=== PATIENT | male | born 1960 | race Caucasian/White ===

== ENCOUNTER 2022-04-14 23:02 | Inpatient (IN) | payer OTHER, BC ==
[~2022-04-14 23:02] MED LIST: Iopamidol-370 76% 500 ML 1 ML ONE
[2022-04-14] MEDS ORDERED: Boostrix 0.5 ML (Tdap) VIAL ONE (23:09)
[2022-04-14] MEDS ORDERED: CEFAZOLIN 1 GM VIAL ONE (23:09)
[2022-04-14] MEDS ORDERED: Fentanyl 100 MCG/2 ML VIAL ONE (23:15)
[2022-04-14 23:30] LABS: #Basophils 0.1 thou/uL (0.0-0.2); #Eosinphils 0.2 thou/uL (0.0-0.7); #Lymphocytes 3.8 thou/uL (1.20-3.40); #Monocytes 0.7 thou/uL (0.11-0.59); #Neutrophils 5.3 thou/uL (1.40-6.50); %Basophils 0.6 % (0.0-1.0); %Eosinophils 2.4 % (0.0-10.0); %Lymphocytes 37.5 % (21.0-51.0); %Neutrophils 52.5 % (42.0-75.0); Hemoglobin 13.6 g/dL (14.0-18.0); Mean Corpuscular HGB CONC 33.4 g/dL (32.0-36.0); Mean Corpuscular Hemoglobin 32.8 pg (27.0-31.0); Mean Corpuscular Volume 98.1 fL (78.0-98.0); Mean Platelet Volume 8.3 fL (7.4-10.4); Platelet Count 285 thou/uL (130-400); RBC Distribution Width 11.9 % (11.5-14.5); Red Blood Cell (RBC) Count 4.15 mill/uL (4.70-6.10)
[2022-04-14 23:42] LABS: Prothrombin Time 13.7 sec (12.0-14.7)
[2022-04-14 23:43] LABS: PTT 25.6 sec (22.9-36.1)
[2022-04-14 23:46] LABS: ALT (SGPT) 130 U/L (8-55); AST (SGOT) 134 U/L (5-34); Albumin 3.7 g/dL (3.4-4.8); Alkaline Phosphatase 50 U/L (40-110); Anion Gap 13 mmol/L (10-20); BUN (Urea Nitrogen) 15 mg/dL (8.4-25.7); Bilirubin, Total 0.4 mg/dL (0.2-1.2); Calc. Creatinine Clearance 0 mL/min (70-130); Calcium 8.6 mg/dL (7.8-10.44); Carbon Dioxide 21 mmol/L (23-31); Chloride 112 mmol/L (98-107); Globulin 2.7 g/dL (2.4-3.5); Glucose 98 mg/dL (80-115); Lipase 33 U/L (8-78); Protein, Total 6.4 g/dL (5.8-8.1); Sodium 142 mmol/L (136-145)
[2022-04-15] MEDS ORDERED: Morphine 4 MG/ML VIAL ONE (00:03)
[2022-04-15] MEDS ORDERED: Lidocaine 1% PF 5 ML VIAL ONE ×3 (00:09→12:20)
[2022-04-15] MEDS ORDERED: Bupivacaine 0.25% 10 ML VIAL ONE (00:09)
[2022-04-15] MEDS ORDERED: Xylocaine 1% w/ Epi 1:100K 10 ML VIAL ONE ×4 (00:09→18:53)
[2022-04-15] MEDS ORDERED: Ketamine 50 MG/ML (10ML VIAL) ONE ×2 (00:18→15:14)
[2022-04-15] MEDS ORDERED: Lidocaine 1% w/Epinephrine 1:100K 20 ML VIAL ONE (01:08)
[2022-04-15] MEDS ORDERED: Fentanyl 100 MCG/2 ML VIAL ONE ×2 (01:43→03:06)
[2022-04-15] MEDS ORDERED: Dextrose 5% in Water 1,000 ML IV PRN (02:33)
[2022-04-15] MEDS ORDERED: diphenhydrAMINE 50 MG/ML VIAL IVP PRN (02:33)
[2022-04-15] MEDS ORDERED: diphenhydrAMINE 25 MG CAP PO PRN (02:33)
[2022-04-15] MEDS ORDERED: Dextrose 50% Abboject 50 ML SYRINGE SLOW IVP PRN (02:33)
[2022-04-15] MEDS ORDERED: diphenhydrAMINE 50 MG/ML VIAL IM PRN (02:33)
[2022-04-15] MEDS ORDERED: Ondansetron PF 4 MG/2 ML Vial IVP PRN (02:33)
[2022-04-15] MEDS ORDERED: Naloxone HCl 0.4 mg/ml Vial IV PRN (02:33)
[2022-04-15] MEDS ORDERED: Promethazine HCl 25 MG/ML VIAL IM PRN (02:33)
[2022-04-15] MEDS ORDERED: Sodium Chloride 0.9% 1,000 ML IV SCH (02:45)
[2022-04-15] MEDS ORDERED: Communication Order-Pharmacy FS SCH (02:45)
[2022-04-15 02:56] LABS: Bilirubin Negative (Negative); Blood, Urine 3+ (Negative); Clarity Turbid (Clear); Glucose, Urine (Dipstick) Normal (Negative); Ketone, Urine Negative (Negative); Leukocyte Negative Leu/uL (Negative); Nitrite Negative (Negative); Protein, Urine (Dipstick) 30 mg/dL (Neg-Trace); Squamous Epithelial 0-3 HPF (0-3); Urobilinogen Normal mg/dL (Less than 2); pH, Urine 5.5 (5.0-9.0)
[2022-04-15 02:59] LABS: Specific Gravity, Urine 1.045 (1.002-1.036)
[2022-04-15 03:05] LABS: Bacteria/HPF None Seen HPF (None Seen); WBC/HPF 0-3 HPF (0-3)
[2022-04-15 03:28] LABS: #Lymphocytes 0.7 thou/uL (1.20-3.40); #Monocytes 0.9 thou/uL (0.11-0.59); #Neutrophils 10.7 thou/uL (1.40-6.50); %Eosinophils 0.3 % (0.0-10.0); %Lymphocytes 5.6 % (21.0-51.0); %Monocytes 7.4 % (0.0-10.0); %Neutrophils 86.7 % (42.0-75.0); Hemoglobin 12.8 g/dL (14.0-18.0); Mean Corpuscular Hemoglobin 32.3 pg (27.0-31.0); Mean Platelet Volume 8.2 fL (7.4-10.4); Platelet Count 168 thou/uL (130-400); RBC Distribution Width 12.9 % (11.5-14.5); Red Blood Cell (RBC) Count 3.97 mill/uL (4.70-6.10); White Blood Cell (WBC) Count 12.3 thou/uL (4.8-10.8)
[2022-04-15] MEDS ORDERED: Fentanyl 100 MCG/2 ML VIAL SLOW IVP SCH ×2 (03:30→08:00)
[2022-04-15] MEDS: HYDROmorphone 10 mg/100 ml CADD IVPB PRN ×2 (03:54→16:54)
[2022-04-15 04:04] LABS: ALT (SGPT) 118 U/L (8-55); AST (SGOT) 125 U/L (5-34); Albumin 3.8 g/dL (3.4-4.8); Alkaline Phosphatase 48 U/L (40-110); Anion Gap 14 mmol/L (10-20); BUN (Urea Nitrogen) 15 mg/dL (8.4-25.7); Bilirubin, Total 1.3 mg/dL (0.2-1.2); CK (CPK) 860 U/L (30-200); Calc. Creatinine Clearance 0 mL/min (70-130); Calcium 8.3 mg/dL (7.8-10.44); Carbon Dioxide 21 mmol/L (23-31); Chloride 112 mmol/L (98-107); Globulin 2.5 g/dL (2.4-3.5); Glucose 148 mg/dL (80-115); Magnesium 1.5 mg/dL (1.6-2.6); Phosphorus 1.7 mg/dL (2.3-4.7); Potassium 3.8 mmol/L (3.5-5.1); Protein, Total 6.3 g/dL (5.8-8.1); Sodium 143 mmol/L (136-145)
[2022-04-15] MEDS: Ketorolac Tromethamine 30 MG/ML VIAL IVP SCH ×4 (06:16→23:52)
[2022-04-15] MEDS ORDERED: Magnesium 2 GM/50 ML(in water) 4 GM in Premix Bag 1 BAG IVPB SCH (07:30)
[2022-04-15] MEDS ORDERED: Potassium Phosphate 30 MMOL, Magnesium Sulfate 4 GM in Sodium Chloride 0.9% 250 ML 250 ML IVPB SCH (07:45)
[2022-04-15] MEDS: Sodium Chloride 0.9% 1,000 ML IV SCH ×3 (08:10→19:48)
[2022-04-15] MEDS: Acetaminophen 500 MG TAB PO SCH ×3 (08:11→20:28)
[2022-04-15] MEDS: Pantoprazole 40 MG VIAL IVP SCH ×2 (08:20→20:28)
[2022-04-15] MEDS ORDERED: Iopamidol-370 76% 500 ML 1 ML ONE (10:33)
[2022-04-15] MEDS ORDERED: Fentanyl 250 MCG/5 ML VIAL ONE (11:43)
[2022-04-15] MEDS ORDERED: SUGAMMADEX SODIUM 200 MG/2 ML VIAL ONE (11:43)
[2022-04-15] MEDS ORDERED: fentaNYL Citrate/PF 100 MCG/2 ML SYRINGE ONE ×2 (12:19→14:07)
[2022-04-15] MEDS ORDERED: PHENYLEPHRINE-NS 100 MCG/ML 10 ML SYRINGE ONE (12:20)
[2022-04-15] MEDS ORDERED: ePHEDrine 50 MG/ML VIAL ONE (12:20)
[2022-04-15] MEDS ORDERED: Vecuronium 10 MG VIAL ONE (12:20)
[2022-04-15] MEDS ORDERED: Ondansetron PF 4 MG/2 ML Vial ONE (12:20)
[2022-04-15] MEDS ORDERED: Dexamethasone 20 MG/5 ML VIAL ONE (12:20)
[2022-04-15] MEDS ORDERED: Rocuronium Bromide 10 MG/ML (10ML VIAL) ONE (12:20)
[2022-04-15] MEDS ORDERED: PROPOFOL 200 MG/20 ML VIAL ONE (12:20)
[2022-04-15] MEDS ORDERED: Levofloxacin 500 mg/D5W 100 ml Premix Bag ONE (12:39)
[2022-04-15] MEDS ORDERED: Clindamycin/D5W 900 mg/50 ml Premix Bag ONE (12:39)
[2022-04-15] MEDS ORDERED: HYDROmorphone 0.5 MG/0.5 ML SYRINGE ONE (14:06)
[2022-04-15] MEDS ORDERED: Dexmedetomidine 200 MCG/2 ML VIAL ONE (15:14)
[2022-04-15] MEDS: Ferrous Sulfate 325 MG TAB PO SCH (17:02)
[2022-04-15] MEDS ORDERED: Lidocaine 1%/Epinephrine 1:100K 10 ML VIAL FS SCH (19:00)
[2022-04-15] MEDS ORDERED: Clindamycin/D5W 900 MG in Premix Bag 1 BAG IVPB SCH (19:04)
[2022-04-15] MEDS: Senokot S 8.6-50 MG TAB PO SCH (20:29)
[2022-04-15] MEDS: Ascorbic Acid 500 mg Chewable Tablet PO SCH (20:29)
[2022-04-16] MEDS: Acetaminophen 500 MG TAB PO SCH ×4 (01:02→21:35)
[2022-04-16] MEDS: Sodium Chloride 0.9% 1,000 ML IV SCH (03:54)
[2022-04-16 04:08] LABS: #Lymphocytes 0.5 thou/uL (1.20-3.40); #Monocytes 0.7 thou/uL (0.11-0.59); #Neutrophils 9.7 thou/uL (1.40-6.50); %Eosinophils 0.1 % (0.0-10.0); %Lymphocytes 4.5 % (21.0-51.0); %Monocytes 6.3 % (0.0-10.0); %Neutrophils 89.1 % (42.0-75.0); Hemoglobin 11.1 g/dL (14.0-18.0); Mean Corpuscular Hemoglobin 33.6 pg (27.0-31.0); Mean Corpuscular Volume 95.9 fL (78.0-98.0); Mean Platelet Volume 8.8 fL (7.4-10.4); Platelet Count 144 thou/uL (130-400); RBC Distribution Width 13.2 % (11.5-14.5); Red Blood Cell (RBC) Count 3.29 mill/uL (4.70-6.10); White Blood Cell (WBC) Count 10.9 thou/uL (4.8-10.8)
[2022-04-16 04:19] LABS: INR-International Normal Ratio 1.1; Prothrombin Time 14.7 sec (12.0-14.7)
[2022-04-16 04:20] LABS: PTT 32.6 sec (22.9-36.1)
[2022-04-16 04:40] LABS: Anion Gap 11 mmol/L (10-20); BUN (Urea Nitrogen) 8 mg/dL (8.4-25.7); CK (CPK) 2553 U/L (30-200); Calc. Creatinine Clearance 139 mL/min (70-130); Calcium 7.8 mg/dL (7.8-10.44); Carbon Dioxide 23 mmol/L (23-31); Chloride 109 mmol/L (98-107); Glucose 181 mg/dL (80-115); Magnesium 2.1 mg/dL (1.6-2.6); Phosphorus 2.1 mg/dL (2.3-4.7); Potassium 3.8 mmol/L (3.5-5.1); Sodium 139 mmol/L (136-145)
[2022-04-16] MEDS: Ketorolac Tromethamine 30 MG/ML VIAL IVP SCH ×3 (05:29→17:26)
[2022-04-16] MEDS: HYDROmorphone 10 mg/100 ml CADD IVPB PRN ×2 (07:34→21:31)
[2022-04-16] MEDS: Pantoprazole 40 MG VIAL IVP SCH ×2 (07:46→21:36)
[2022-04-16] MEDS: Ferrous Sulfate 325 MG TAB PO SCH ×2 (07:47→17:27)
[2022-04-16] MEDS: Polyethylene Glycol 3350 17 GM Packet PO SCH (07:47)
[2022-04-16] MEDS: Ascorbic Acid 500 mg Chewable Tablet PO SCH ×2 (07:47→21:35)
[2022-04-16] MEDS: Senokot S 8.6-50 MG TAB PO SCH ×2 (07:47→21:35)
[2022-04-16] MEDS ORDERED: Cyclobenzaprine 10 MG TAB PO PRN (09:57)
[2022-04-16] MEDS: traMADol HCl 50 MG TAB PO SCH ×2 (12:43→17:26)
[2022-04-16] MEDS: Gabapentin 100 MG CAP PO SCH ×2 (15:22→21:35)
[2022-04-16] MEDS: Enoxaparin Sodium 30 MG/0.3 ML SYRINGE SC SCH (21:34)
[2022-04-17] MEDS: Ketorolac Tromethamine 30 MG/ML VIAL IVP SCH (00:03)
[2022-04-17] MEDS: traMADol HCl 50 MG TAB PO SCH ×5 (00:06→23:27)
[2022-04-17] MEDS: Acetaminophen 500 MG TAB PO SCH ×4 (02:20→21:25)
[2022-04-17 06:16] LABS: #Eosinphils 0.1 thou/uL (0.0-0.7); #Lymphocytes 1.6 thou/uL (1.20-3.40); #Monocytes 0.9 thou/uL (0.11-0.59); #Neutrophils 8.6 thou/uL (1.40-6.50); %Basophils 0.2 % (0.0-1.0); %Eosinophils 0.5 % (0.0-10.0); %Lymphocytes 14.6 % (21.0-51.0); %Neutrophils 76.8 % (42.0-75.0); Hemoglobin 10.5 g/dL (14.0-18.0); Mean Corpuscular HGB CONC 33.8 g/dL (32.0-36.0); Mean Corpuscular Hemoglobin 32.9 pg (27.0-31.0); Mean Corpuscular Volume 97.6 fL (78.0-98.0); Mean Platelet Volume 8.6 fL (7.4-10.4); Platelet Count 141 thou/uL (130-400); RBC Distribution Width 13.1 % (11.5-14.5); Red Blood Cell (RBC) Count 3.19 mill/uL (4.70-6.10); White Blood Cell (WBC) Count 11.2 thou/uL (4.8-10.8)
[2022-04-17 06:44] LABS: Anion Gap 10 mmol/L (10-20); BUN (Urea Nitrogen) 11 mg/dL (8.4-25.7); CK (CPK) 2987 U/L (30-200); Calc. Creatinine Clearance 136 mL/min (70-130); Calcium 8.3 mg/dL (7.8-10.44); Carbon Dioxide 28 mmol/L (23-31); Chloride 106 mmol/L (98-107); Glucose 114 mg/dL (80-115); Magnesium 2.3 mg/dL (1.6-2.6); Phosphorus 3.1 mg/dL (2.3-4.7); Potassium 3.9 mmol/L (3.5-5.1); Sodium 140 mmol/L (136-145)
[2022-04-17] MEDS: HYDROmorphone 10 mg/100 ml CADD IVPB PRN (07:00)
[2022-04-17] MEDS ORDERED: Sodium Phosphate 15 MMOL in Sodium Chloride 0.9% 250 ML 250 ML IVPB SCH (08:00)
[2022-04-17] MEDS ORDERED: Enoxaparin Sodium 40 MG/0.4 ML SYRINGE SC SCH (09:00)
[2022-04-17] MEDS: Polyethylene Glycol 3350 17 GM Packet PO SCH (09:48)
[2022-04-17] MEDS: Enoxaparin Sodium 30 MG/0.3 ML SYRINGE SC SCH ×2 (09:49→21:25)
[2022-04-17] MEDS: Gabapentin 100 MG CAP PO SCH ×3 (09:49→21:26)
[2022-04-17] MEDS: Ascorbic Acid 500 mg Chewable Tablet PO SCH ×2 (09:49→21:25)
[2022-04-17] MEDS: Senokot S 8.6-50 MG TAB PO SCH ×2 (09:49→21:26)
[2022-04-17] MEDS: Pantoprazole 40 MG VIAL IVP SCH (09:49)
[2022-04-17] MEDS: Ferrous Sulfate 325 MG TAB PO SCH ×3 (09:50→21:26)
[2022-04-17] MEDS: Sodium Chloride 0.9% 1,000 ML IV SCH ×2 (09:56→16:58)
[2022-04-17] MEDS: hydrALAZINE 20 MG/ML VIAL SLOW IVP PRN (16:59)
[2022-04-18] MEDS: hydrALAZINE 20 MG/ML VIAL SLOW IVP PRN ×2 (00:01→05:04)
[2022-04-18 01:14] LABS: SARS-CoV-2 NAA Rapid Test Not Detected (NotDetected)
[2022-04-18] MEDS: Sodium Chloride 0.9% 1,000 ML IV SCH (01:20)
[2022-04-18] MEDS: Acetaminophen 500 MG TAB PO SCH ×4 (01:31→23:22)
[2022-04-18 05:24] LABS: #Eosinphils 0.2 thou/uL (0.0-0.7); #Lymphocytes 1.3 thou/uL (1.20-3.40); #Monocytes 0.5 thou/uL (0.11-0.59); #Neutrophils 5.9 thou/uL (1.40-6.50); %Basophils 0.4 % (0.0-1.0); %Eosinophils 2.7 % (0.0-10.0); %Lymphocytes 16.2 % (21.0-51.0); %Monocytes 6.3 % (0.0-10.0); %Neutrophils 74.4 % (42.0-75.0); Hemoglobin 10.3 g/dL (14.0-18.0); Mean Corpuscular HGB CONC 33.7 g/dL (32.0-36.0); Mean Corpuscular Hemoglobin 32.8 pg (27.0-31.0); Mean Corpuscular Volume 97.3 fL (78.0-98.0); Mean Platelet Volume 8.4 fL (7.4-10.4); Platelet Count 145 thou/uL (130-400); RBC Distribution Width 12.9 % (11.5-14.5); Red Blood Cell (RBC) Count 3.14 mill/uL (4.70-6.10)
[2022-04-18] MEDS: traMADol HCl 50 MG TAB PO SCH ×3 (05:32→17:34)
[2022-04-18 05:46] LABS: Anion Gap 7 mmol/L (10-20); BUN (Urea Nitrogen) 9 mg/dL (8.4-25.7); CK (CPK) 2055 U/L (30-200); Calc. Creatinine Clearance 179 mL/min (70-130); Calcium 8.4 mg/dL (7.8-10.44); Carbon Dioxide 29 mmol/L (23-31); Chloride 108 mmol/L (98-107); Glucose 101 mg/dL (80-115); Magnesium 1.8 mg/dL (1.6-2.6); Phosphorus 3.2 mg/dL (2.3-4.7); Potassium 3.7 mmol/L (3.5-5.1); Sodium 140 mmol/L (136-145)
[2022-04-18] MEDS: Ibuprofen 200 MG TAB PO PRN (05:58)
[2022-04-18] MEDS: HYDROmorphone 10 mg/100 ml CADD IVPB PRN (06:10)
[2022-04-18] MEDS ORDERED: Cyclobenzaprine 10 MG TAB PO PRN (07:41)
[2022-04-18] MEDS: Senokot S 8.6-50 MG TAB PO SCH ×2 (09:56→23:24)
[2022-04-18] MEDS: Enoxaparin Sodium 30 MG/0.3 ML SYRINGE SC SCH ×2 (09:56→23:23)
[2022-04-18] MEDS: Ferrous Sulfate 325 MG TAB PO SCH ×2 (09:56→23:23)
[2022-04-18] MEDS: Ascorbic Acid 500 mg Chewable Tablet PO SCH ×2 (09:56→23:23)
[2022-04-18] MEDS: Polyethylene Glycol 3350 17 GM Packet PO SCH (09:56)
[2022-04-18] MEDS: Gabapentin 100 MG CAP PO SCH ×3 (09:57→23:23)
[2022-04-18] MEDS ORDERED: Magnesium 2 GM/50 ML(in water) 2 GM in Premix Bag 1 BAG IVPB SCH (11:30)
[2022-04-18] MEDS ORDERED: PHOS-NAK 1 PKT PACK PO SCH (11:30)
[2022-04-18] MEDS ORDERED: Bupivacaine PF 0.5% 30 ML VIAL ONE ×2 (17:38→23:08)
[2022-04-18] MEDS ORDERED: Bacitracin Zinc Ointment 30 gm TUBE ONE (17:38)
[2022-04-18] MEDS ORDERED: Neomycin-Polymyxin 1 ML AMP ONE (17:38)
[2022-04-18] MEDS ORDERED: fentaNYL Citrate/PF 100 MCG/2 ML SYRINGE ONE ×2 (17:53→18:40)
[2022-04-18] MEDS ORDERED: Vancomycin 1 GM/200 ML BAG ONE (18:00)
[2022-04-18] MEDS ORDERED: Ondansetron PF 4 MG/2 ML Vial ONE (18:06)
[2022-04-18] MEDS ORDERED: PROPOFOL 200 MG/20 ML VIAL ONE (18:06)
[2022-04-18] MEDS ORDERED: HYDROmorphone 2 MG/ML VIAL SLOW IVP PRN (23:46)
[2022-04-18] MEDS ORDERED: Promethazine HCl 25 MG/ML VIAL IM PRN (23:46)
[2022-04-18] MEDS ORDERED: Ondansetron HCl/PF 4 MG/2 ML Vial IVP PRN (23:46)
[2022-04-18] MEDS ORDERED: Promethazine HCl 25 MG/ML VIAL IVPB PRN (23:46)
[2022-04-18] MEDS ORDERED: Fentanyl 100 MCG/2 ML VIAL ONE (23:52)
[2022-04-19] MEDS ORDERED: HYDROmorphone 0.5 MG/0.5 ML SYRINGE ONE ×3 (00:15→00:39)
[2022-04-19] MEDS ORDERED: Fentanyl 100 MCG/2 ML VIAL ONE (00:59)
[2022-04-19] MEDS: Morphine 4 MG/ML VIAL SLOW IVP PRN ×4 (02:30→19:52)
[2022-04-19] MEDS: traMADol HCl 50 MG TAB PO SCH ×4 (02:45→16:27)
[2022-04-19] MEDS: Acetaminophen 500 MG TAB PO SCH ×4 (02:46→19:48)
[2022-04-19] MEDS: Ibuprofen 200 MG TAB PO PRN ×2 (02:47→06:12)
[2022-04-19] MEDS: tiZANidine HCl 4 MG TAB PO PRN ×2 (03:47→17:39)
[2022-04-19] MEDS: traMADol HCl 50 MG TAB PO PRN ×2 (03:47→17:40)
[2022-04-19 05:28] LABS: #Eosinphils 0.2 thou/uL (0.0-0.7); #Lymphocytes 1.1 thou/uL (1.20-3.40); #Monocytes 0.8 thou/uL (0.11-0.59); #Neutrophils 6.1 thou/uL (1.40-6.50); %Basophils 0.3 % (0.0-1.0); %Eosinophils 2.7 % (0.0-10.0); %Lymphocytes 13.2 % (21.0-51.0); %Monocytes 9.3 % (0.0-10.0); %Neutrophils 74.6 % (42.0-75.0); Hemoglobin 9.4 g/dL (14.0-18.0); Mean Corpuscular HGB CONC 34.6 g/dL (32.0-36.0); Mean Corpuscular Hemoglobin 32.8 pg (27.0-31.0); Mean Corpuscular Volume 94.9 fL (78.0-98.0); Mean Platelet Volume 7.5 fL (7.4-10.4); Platelet Count 168 thou/uL (130-400); RBC Distribution Width 12.7 % (11.5-14.5); Red Blood Cell (RBC) Count 2.87 mill/uL (4.70-6.10); White Blood Cell (WBC) Count 8.2 thou/uL (4.8-10.8)
[2022-04-19 06:09] LABS: Anion Gap 10 mmol/L (10-20); BUN (Urea Nitrogen) 15 mg/dL (8.4-25.7); Calc. Creatinine Clearance 110 mL/min (70-130); Carbon Dioxide 27 mmol/L (23-31); Chloride 105 mmol/L (98-107); Potassium 3.9 mmol/L (3.5-5.1); Sodium 138 mmol/L (136-145)
[2022-04-19 06:10] LABS: Calcium 8.1 mg/dL (7.8-10.44); Glucose 108 mg/dL (80-115); Phosphorus 4.5 mg/dL (2.3-4.7)
[2022-04-19] MEDS: Ascorbic Acid 500 mg Chewable Tablet PO SCH ×2 (07:54→19:46)
[2022-04-19] MEDS: Ferrous Sulfate 325 MG TAB PO SCH ×2 (07:54→19:45)
[2022-04-19] MEDS: Polyethylene Glycol 3350 17 GM Packet PO SCH (07:54)
[2022-04-19] MEDS: Gabapentin 100 MG CAP PO SCH ×4 (07:55→19:46)
[2022-04-19] MEDS: Enoxaparin Sodium 30 MG/0.3 ML SYRINGE SC SCH ×2 (07:55→22:13)
[2022-04-19] MEDS: Senokot S 8.6-50 MG TAB PO SCH ×2 (07:56→19:46)
[2022-04-19] MEDS: Ibuprofen 200 MG TAB PO SCH ×3 (15:16→19:47)
[2022-04-19] MEDS ORDERED: Promethazine HCl 25 MG/ML VIAL IM PRN (15:45)
[2022-04-19] MEDS ORDERED: Meperidine HCl/PF 25 MG/ML VIAL SLOW IVP PRN (15:45)
[2022-04-19] MEDS: Vancomycin 1 GM in Premix Bag 1 BAG IVPB SCH (16:29)
[2022-04-19] MEDS: hydrALAZINE 20 MG/ML VIAL SLOW IVP PRN (16:43)
[2022-04-20] MEDS: traMADol HCl 50 MG TAB PO SCH ×5 (00:01→23:29)
[2022-04-20] MEDS: traMADol HCl 50 MG TAB PO PRN ×3 (01:06→15:54)
[2022-04-20] MEDS: tiZANidine HCl 4 MG TAB PO PRN ×4 (01:07→23:34)
[2022-04-20] MEDS: Acetaminophen 500 MG TAB PO SCH ×4 (02:03→20:33)
[2022-04-20] MEDS: Ibuprofen 200 MG TAB PO SCH ×4 (02:04→20:34)
[2022-04-20] MEDS: Vancomycin 1 GM in Premix Bag 1 BAG IVPB SCH ×2 (05:13→15:55)
[2022-04-20] MEDS: Polyethylene Glycol 3350 17 GM Packet PO SCH (08:31)
[2022-04-20] MEDS: Ascorbic Acid 500 mg Chewable Tablet PO SCH ×2 (08:31→20:35)
[2022-04-20] MEDS: Ferrous Sulfate 325 MG TAB PO SCH ×2 (08:32→20:32)
[2022-04-20] MEDS: Senokot S 8.6-50 MG TAB PO SCH ×2 (08:32→20:35)
[2022-04-20] MEDS: Gabapentin 300 MG CAP PO SCH ×3 (08:33→20:34)
[2022-04-20] MEDS: Enoxaparin Sodium 30 MG/0.3 ML SYRINGE SC SCH ×2 (08:34→20:32)
[2022-04-20] MEDS: Morphine 4 MG/ML VIAL SLOW IVP PRN (14:28)
[2022-04-21] MEDS: Acetaminophen 500 MG TAB PO SCH ×4 (03:05→20:08)
[2022-04-21] MEDS: traMADol HCl 50 MG TAB PO PRN ×2 (03:06→22:44)
[2022-04-21 04:37] LABS: Vancomycin, Trough 8.6 ug/mL
[2022-04-21] MEDS: Ibuprofen 200 MG TAB PO SCH ×3 (05:23→22:44)
[2022-04-21] MEDS: Vancomycin 1 GM in Premix Bag 1 BAG IVPB SCH ×2 (05:23→16:30)
[2022-04-21] MEDS: traMADol HCl 50 MG TAB PO SCH ×4 (05:26→23:55)
[2022-04-21] MEDS: Gabapentin 300 MG CAP PO SCH ×3 (08:33→20:07)
[2022-04-21] MEDS: Ferrous Sulfate 325 MG TAB PO SCH ×2 (08:33→20:06)
[2022-04-21] MEDS: Enoxaparin Sodium 30 MG/0.3 ML SYRINGE SC SCH ×2 (08:33→20:07)
[2022-04-21] MEDS: Ascorbic Acid 500 mg Chewable Tablet PO SCH ×2 (08:33→20:06)
[2022-04-21] MEDS: Senokot S 8.6-50 MG TAB PO SCH ×2 (08:33→20:06)
[2022-04-21] MEDS: tiZANidine HCl 4 MG TAB PO PRN ×2 (08:36→17:45)
[2022-04-21] MEDS: Polyethylene Glycol 3350 17 GM Packet PO SCH (09:40)
[2022-04-21] MEDS: Morphine 4 MG/ML VIAL SLOW IVP PRN (23:01)
[2022-04-22] MEDS: Acetaminophen 500 MG TAB PO SCH ×4 (02:58→20:31)
[2022-04-22] MEDS: Ibuprofen 200 MG TAB PO SCH ×3 (05:16→21:52)
[2022-04-22] MEDS: traMADol HCl 50 MG TAB PO SCH ×4 (05:17→23:48)
[2022-04-22] MEDS: Ascorbic Acid 500 mg Chewable Tablet PO SCH ×2 (08:26→20:30)
[2022-04-22] MEDS: Ferrous Sulfate 325 MG TAB PO SCH ×2 (08:26→20:30)
[2022-04-22] MEDS: Gabapentin 300 MG CAP PO SCH ×3 (08:26→20:31)
[2022-04-22] MEDS: Enoxaparin Sodium 30 MG/0.3 ML SYRINGE SC SCH ×2 (08:26→20:32)
[2022-04-22] MEDS: Senokot S 8.6-50 MG TAB PO SCH ×2 (08:26→20:31)
[2022-04-22] MEDS: Polyethylene Glycol 3350 17 GM Packet PO SCH (09:19)
[2022-04-22] MEDS: tiZANidine HCl 4 MG TAB PO PRN ×2 (11:57→23:49)
[2022-04-22] MEDS: traMADol HCl 50 MG TAB PO PRN ×2 (11:58→20:31)
[2022-04-23] MEDS: Acetaminophen 500 MG TAB PO SCH ×4 (02:06→20:18)
[2022-04-23] MEDS: Ibuprofen 200 MG TAB PO SCH ×3 (05:36→21:58)
[2022-04-23] MEDS: traMADol HCl 50 MG TAB PO SCH ×4 (05:36→23:04)
[2022-04-23] MEDS: Ascorbic Acid 500 mg Chewable Tablet PO SCH ×2 (08:30→20:19)
[2022-04-23] MEDS: Gabapentin 300 MG CAP PO SCH ×3 (08:30→20:19)
[2022-04-23] MEDS: Ferrous Sulfate 325 MG TAB PO SCH ×2 (08:30→20:19)
[2022-04-23] MEDS: Senokot S 8.6-50 MG TAB PO SCH ×2 (08:31→20:20)
[2022-04-23] MEDS: Enoxaparin Sodium 30 MG/0.3 ML SYRINGE SC SCH ×2 (08:37→20:19)
[2022-04-23] MEDS: Polyethylene Glycol 3350 17 GM Packet PO SCH (08:38)
[2022-04-23] MEDS: tiZANidine HCl 4 MG TAB PO PRN ×2 (10:06→23:04)
[2022-04-23] MEDS: traMADol HCl 50 MG TAB PO PRN ×3 (10:06→21:59)
[2022-04-23] MEDS: Morphine 4 MG/ML VIAL SLOW IVP PRN (15:57)
[2022-04-24] MEDS: Acetaminophen 500 MG TAB PO SCH ×4 (01:31→18:38)
[2022-04-24] MEDS: Ibuprofen 200 MG TAB PO SCH ×3 (05:39→21:43)
[2022-04-24] MEDS: traMADol HCl 50 MG TAB PO SCH ×3 (05:39→18:37)
[2022-04-24] MEDS: Ferrous Sulfate 325 MG TAB PO SCH ×2 (09:08→21:43)
[2022-04-24] MEDS: Gabapentin 300 MG CAP PO SCH ×3 (09:08→21:42)
[2022-04-24] MEDS: Enoxaparin Sodium 30 MG/0.3 ML SYRINGE SC SCH ×2 (09:08→21:43)
[2022-04-24] MEDS: Ascorbic Acid 500 mg Chewable Tablet PO SCH ×2 (09:08→21:43)
[2022-04-24] MEDS: tiZANidine HCl 4 MG TAB PO PRN ×2 (09:08→21:43)
[2022-04-24] MEDS: Senokot S 8.6-50 MG TAB PO SCH ×2 (09:09→21:44)
[2022-04-24] MEDS: Polyethylene Glycol 3350 17 GM Packet PO SCH (09:09)
[2022-04-24] MEDS ORDERED: Ketorolac Tromethamine 30 MG/ML VIAL IVP SCH (14:00)
[2022-04-25] MEDS: traMADol HCl 50 MG TAB PO SCH ×4 (00:26→17:00)
[2022-04-25] MEDS: Acetaminophen 500 MG TAB PO SCH ×4 (00:27→17:02)
[2022-04-25] MEDS: Ibuprofen 200 MG TAB PO SCH ×3 (06:00→21:42)
[2022-04-25] MEDS: Ferrous Sulfate 325 MG TAB PO SCH ×2 (10:20→21:41)
[2022-04-25] MEDS: Gabapentin 300 MG CAP PO SCH ×3 (10:21→21:42)
[2022-04-25] MEDS: Ascorbic Acid 500 mg Chewable Tablet PO SCH ×2 (10:21→21:42)
[2022-04-25] MEDS: Senokot S 8.6-50 MG TAB PO SCH (10:22)
[2022-04-25] MEDS: Enoxaparin Sodium 30 MG/0.3 ML SYRINGE SC SCH ×2 (10:22→21:40)
[2022-04-25] MEDS: Polyethylene Glycol 3350 17 GM Packet PO SCH (10:22)
[2022-04-25] MEDS: tiZANidine HCl 4 MG TAB PO PRN (16:59)
[2022-04-26] MEDS: Senokot S 8.6-50 MG TAB PO SCH ×3 (01:14→20:39)
[2022-04-26] MEDS: Acetaminophen 500 MG TAB PO SCH ×4 (01:16→18:46)
[2022-04-26] MEDS: traMADol HCl 50 MG TAB PO SCH ×4 (01:16→18:46)
[2022-04-26] MEDS: tiZANidine HCl 4 MG TAB PO PRN ×3 (01:51→20:47)
[2022-04-26] MEDS: Ibuprofen 200 MG TAB PO SCH ×3 (06:33→20:38)
[2022-04-26] MEDS: Ferrous Sulfate 325 MG TAB PO SCH ×2 (10:01→20:39)
[2022-04-26] MEDS: Ascorbic Acid 500 mg Chewable Tablet PO SCH ×2 (10:02→20:38)
[2022-04-26] MEDS: Gabapentin 300 MG CAP PO SCH ×3 (10:02→20:37)
[2022-04-26] MEDS: Enoxaparin Sodium 30 MG/0.3 ML SYRINGE SC SCH ×2 (10:02→20:37)
[2022-04-26] MEDS: Polyethylene Glycol 3350 17 GM Packet PO SCH (10:03)
[2022-04-27] MEDS: traMADol HCl 50 MG TAB PO SCH ×5 (00:58→23:01)
[2022-04-27] MEDS: Acetaminophen 500 MG TAB PO SCH ×5 (01:00→23:01)
[2022-04-27] MEDS: Ibuprofen 200 MG TAB PO SCH (06:25)
[2022-04-27] MEDS: Enoxaparin Sodium 30 MG/0.3 ML SYRINGE SC SCH ×2 (09:37→21:48)
[2022-04-27] MEDS: Ascorbic Acid 500 mg Chewable Tablet PO SCH (09:38)
[2022-04-27] MEDS: Polyethylene Glycol 3350 17 GM Packet PO SCH (09:38)
[2022-04-27] MEDS: Gabapentin 300 MG CAP PO SCH ×3 (09:38→21:47)
[2022-04-27] MEDS: Senokot S 8.6-50 MG TAB PO SCH ×2 (09:38→21:49)
[2022-04-27] MEDS: Ferrous Sulfate 325 MG TAB PO SCH (09:38)
[2022-04-27] MEDS ORDERED: Ibuprofen 200 MG TAB PO PRN (14:00)
[2022-04-27] MEDS ORDERED: Cefdinir 300 MG CAP PO SCH (17:00)
[2022-04-27] MEDS: tiZANidine HCl 4 MG TAB PO PRN (21:47)
[2022-04-28] MEDS: tiZANidine HCl 4 MG TAB PO PRN ×2 (03:24→22:02)
[2022-04-28] MEDS: Acetaminophen 500 MG TAB PO SCH ×4 (05:47→22:54)
[2022-04-28] MEDS: traMADol HCl 50 MG TAB PO SCH ×4 (05:48→22:55)
[2022-04-28] MEDS: Saccharomyces boulardii 250 MG CAP PO SCH (08:39)
[2022-04-28] MEDS: Enoxaparin Sodium 30 MG/0.3 ML SYRINGE SC SCH ×2 (08:39→22:00)
[2022-04-28] MEDS: Cefdinir 300 MG CAP PO SCH (08:39)
[2022-04-28] MEDS: Gabapentin 300 MG CAP PO SCH ×3 (08:40→22:01)
[2022-04-28] MEDS: Senokot S 8.6-50 MG TAB PO SCH ×2 (08:41→22:01)
[2022-04-28] MEDS: Polyethylene Glycol 3350 17 GM Packet PO SCH (08:41)
[2022-04-29] MEDS: traMADol HCl 50 MG TAB PO SCH ×4 (06:42→23:39)
[2022-04-29] MEDS: Acetaminophen 500 MG TAB PO SCH ×4 (06:43→23:38)
[2022-04-29] MEDS: tiZANidine HCl 4 MG TAB PO PRN ×2 (06:44→20:48)
[2022-04-29] MEDS: Enoxaparin Sodium 30 MG/0.3 ML SYRINGE SC SCH ×2 (09:22→20:43)
[2022-04-29] MEDS: Cefdinir 300 MG CAP PO SCH (09:23)
[2022-04-29] MEDS: Saccharomyces boulardii 250 MG CAP PO SCH (09:23)
[2022-04-29] MEDS: Polyethylene Glycol 3350 17 GM Packet PO SCH (09:23)
[2022-04-29] MEDS: Gabapentin 300 MG CAP PO SCH ×3 (09:23→20:42)
[2022-04-29] MEDS: Senokot S 8.6-50 MG TAB PO SCH ×2 (09:24→20:40)
[2022-04-29] MEDS ORDERED: Morphine 2 MG/ML VIAL SLOW IVP SCH (09:30)
[2022-04-29] MEDS ORDERED: Ketorolac Tromethamine 30 MG/ML VIAL IVP SCH (09:30)
[2022-04-29] MEDS: Ketorolac Tromethamine 30 MG/ML VIAL IVP SCH ×2 (18:05→23:37)
[2022-04-30] MEDS: tiZANidine HCl 4 MG TAB PO PRN ×2 (03:24→23:01)
[2022-04-30] MEDS: Acetaminophen 500 MG TAB PO SCH ×4 (05:11→23:01)
[2022-04-30] MEDS: Ketorolac Tromethamine 30 MG/ML VIAL IVP SCH ×3 (05:13→17:17)
[2022-04-30] MEDS: traMADol HCl 50 MG TAB PO SCH ×4 (05:14→23:00)
[2022-04-30] MEDS: Cefdinir 300 MG CAP PO SCH (08:29)
[2022-04-30] MEDS: Gabapentin 300 MG CAP PO SCH ×3 (08:29→20:32)
[2022-04-30] MEDS: Enoxaparin Sodium 30 MG/0.3 ML SYRINGE SC SCH ×2 (08:29→20:34)
[2022-04-30] MEDS: Saccharomyces boulardii 250 MG CAP PO SCH (08:29)
[2022-04-30] MEDS: Senokot S 8.6-50 MG TAB PO SCH ×2 (08:31→20:33)
[2022-04-30] MEDS: Polyethylene Glycol 3350 17 GM Packet PO SCH (08:31)
[2022-05-01] MEDS: traMADol HCl 50 MG TAB PO SCH ×4 (05:27→23:20)
[2022-05-01] MEDS: Acetaminophen 500 MG TAB PO SCH ×4 (05:27→23:20)
[2022-05-01] MEDS: tiZANidine HCl 4 MG TAB PO PRN ×2 (05:27→21:29)
[2022-05-01] MEDS: Cefdinir 300 MG CAP PO SCH (08:42)
[2022-05-01] MEDS: Enoxaparin Sodium 30 MG/0.3 ML SYRINGE SC SCH ×2 (08:42→21:30)
[2022-05-01] MEDS: Saccharomyces boulardii 250 MG CAP PO SCH (08:42)
[2022-05-01] MEDS: Gabapentin 300 MG CAP PO SCH ×3 (08:43→21:29)
[2022-05-01] MEDS: Polyethylene Glycol 3350 17 GM Packet PO SCH (08:43)
[2022-05-01] MEDS: Senokot S 8.6-50 MG TAB PO SCH ×2 (08:44→22:10)
[2022-05-01] MEDS: Morphine 2 MG/ML VIAL SLOW IVP PRN (23:19)
[2022-05-02] MEDS: tiZANidine HCl 4 MG TAB PO PRN ×3 (02:39→17:26)
[2022-05-02] MEDS: Morphine 2 MG/ML VIAL SLOW IVP PRN ×2 (02:39→06:11)
[2022-05-02] MEDS: traMADol HCl 50 MG TAB PO SCH ×3 (06:10→18:27)
[2022-05-02] MEDS: Acetaminophen 500 MG TAB PO SCH ×3 (06:10→18:27)
[2022-05-02] MEDS: Enoxaparin Sodium 30 MG/0.3 ML SYRINGE SC SCH ×2 (08:58→20:49)
[2022-05-02] MEDS: Saccharomyces boulardii 250 MG CAP PO SCH (08:58)
[2022-05-02] MEDS: Gabapentin 300 MG CAP PO SCH ×3 (08:58→20:49)
[2022-05-02] MEDS: Senokot S 8.6-50 MG TAB PO SCH ×2 (09:12→20:50)
[2022-05-02] MEDS: Polyethylene Glycol 3350 17 GM Packet PO SCH (09:12)
[2022-05-02] MEDS ORDERED: Ibuprofen 600 MG TAB PO SCH (14:15)
[2022-05-02] MEDS: Ibuprofen 600 MG TAB PO SCH (20:49)
[2022-05-03] MEDS: Acetaminophen 500 MG TAB PO SCH ×3 (00:20→11:51)
[2022-05-03] MEDS: traMADol HCl 50 MG TAB PO SCH ×3 (00:20→11:54)
[2022-05-03] MEDS: tiZANidine HCl 4 MG TAB PO PRN ×2 (06:03→11:55)
[2022-05-03] MEDS: Ibuprofen 600 MG TAB PO SCH ×2 (06:06→14:39)
[2022-05-03] MEDS: Saccharomyces boulardii 250 MG CAP PO SCH (08:25)
[2022-05-03] MEDS: Gabapentin 300 MG CAP PO SCH ×2 (08:26→14:40)
[2022-05-03] MEDS: Enoxaparin Sodium 30 MG/0.3 ML SYRINGE SC SCH (08:31)
[2022-05-03] MEDS: Polyethylene Glycol 3350 17 GM Packet PO SCH (09:06)
[2022-05-03] MEDS: Senokot S 8.6-50 MG TAB PO SCH (09:06)
[2022-05-03 12:12] VITALS: BP 138/85; TEMP 97.4
== END 2022-05-03 15:35 | DRG 957 ==
LOC: ERS 23:02 → CCU 04-15 02:33 → SURG A 04-16 09:15
PROVIDERS: ADMIT Physician Assistant Medical; ATTEND Surgery
PROC: 0QS304Z Reposition Left Pelvic Bone with Internal Fixation Device, Open Approach (ICD-10-PCS; principal; 2022-04-15)
PROC: 0QS204Z Reposition Right Pelvic Bone with Internal Fixation Device, Open Approach (ICD-10-PCS; 2022-04-15)
PROC: 0QH134Z Insertion of Internal Fixation Device into Sacrum, Percutaneous Approach (ICD-10-PCS; 2022-04-15)
PROC: 0SH734Z Insertion of Internal Fixation Device into Right Sacroiliac Joint, Percutaneous Approach (ICD-10-PCS; 2022-04-15)
PROC: 0PSH35Z Reposition Right Radius with External Fixation Device, Percutaneous Approach (ICD-10-PCS; 2022-04-15)
PROC: 30233L1 Transfusion of Nonautologous Fresh Plasma into Peripheral Vein, Percutaneous Approach (ICD-10-PCS; 2022-04-15)
PROC: 30233N1 Transfusion of Nonautologous Red Blood Cells into Peripheral Vein, Percutaneous Approach (ICD-10-PCS; 2022-04-15)
PROC: 30233K1 Transfusion of Nonautologous Frozen Plasma into Peripheral Vein, Percutaneous Approach (ICD-10-PCS; 2022-04-15)
PROC: 0CQ0XZZ Repair Upper Lip, External Approach (ICD-10-PCS; 2022-04-15)
PROC: 02HV33Z Insertion of Infusion Device into Superior Vena Cava, Percutaneous Approach (ICD-10-PCS; 2022-04-15)
PROC: 01N50ZZ Release Median Nerve, Open Approach (ICD-10-PCS; 2022-04-18)
PROC: 0PSH04Z Reposition Right Radius with Internal Fixation Device, Open Approach (ICD-10-PCS; 2022-04-18)
PROC: 0PUH07Z Supplement Right Radius with Autologous Tissue Substitute, Open Approach (ICD-10-PCS; 2022-04-18)
PROC: 0RPNX5Z Removal of External Fixation Device from Right Wrist Joint, External Approach (ICD-10-PCS; 2022-04-18)
DX: S32.592A Other specified fracture of left pubis, initial encounter for closed fracture (principal); T79.4XXA Traumatic shock, initial encounter; S27.322A Contusion of lung, bilateral, initial encounter; S32.129A Unspecified Zone II fracture of sacrum, initial encounter for closed fracture; S52.501A Unspecified fracture of the lower end of right radius, initial encounter for closed fracture; S22.41XA Multiple fractures of ribs, right side, initial encounter for closed fracture; E87.2 Acidosis; D62 Acute posthemorrhagic anemia; S32.591A Other specified fracture of right pubis, initial encounter for closed fracture; S06.0X0A Concussion without loss of consciousness, initial encounter; Z20.822 Contact with and (suspected) exposure to COVID-19; G25.81 Restless legs syndrome; M19.90 Unspecified osteoarthritis, unspecified site; S02.2XXA Fracture of nasal bones, initial encounter for closed fracture; I10 Essential (primary) hypertension; K21.9 Gastro-esophageal reflux disease without esophagitis; G89.29 Other chronic pain; E83.39 Other disorders of phosphorus metabolism; E87.6 Hypokalemia; T79.6XXA Traumatic ischemia of muscle, initial encounter; S43.81XA Sprain of other specified parts of right shoulder girdle, initial encounter; H57.04 Mydriasis; H43.12 Vitreous hemorrhage, left eye; H93.19 Tinnitus, unspecified ear; V23.4XXA Motorcycle driver injured in collision with car, pick-up truck or van in traffic accident, initial encounter; Z79.899 Other long term (current) drug therapy; Z98.890 Other specified postprocedural states; Z88.0 Allergy status to penicillin
CPT/HCPCS: 12002; 12015; 29125; 36415; 36430; 51610; 70450; 70486; 70498; 71045; 71260; 72125; 72170; 72202; 74177; 74450; 76000; 80048; 80053; 80202; 81003; 81015; 82550; 83605; 83690; 83735; 84100; 85025; 85610; 85730; 86850; 86900; 86901; 90471; 90715; 94640; 96374; 96375; 96376; C1713; C1769; C1776; C1894; C9113; G0390; J0360; J0690; J1100; J1170; J1650; J1885; J1956; J2175; J2270; J2405; J2704; J3010; J3370; J3475; J3490; J7050; J7620; P9016; P9059; Q9967; S0020; U0002; U0003; U0005